=== PATIENT | male | born 1950 | race Caucasian/White ===

== ENCOUNTER 2024-03-02 18:34 | Emergency (ER) | payer MEDICARE, MEDICAID ==
[~2024-03-02] VITALS: Ht 170.2 cm; Wt 75.0 kg
[~2024-03-02 18:34] MED LIST: ASPI-1497 PO; ISOS30TA91 PO; LEVO500T2 MT; LEVO50TA8 PO; OMEP20CA14 MT
[2024-03-02 18:39] VITALS: BP 119/70; PULSE 63; RESP 18; TEMP 98.6; O2SAT 98
[2024-03-02] MEDS ORDERED: DICYCLOMINE 10 MG/5 ML ORAL SYR PO STA (19:55)
[2024-03-02] MEDS ORDERED: MAGNESIUM/ALUMINUM HYDROXIDE/SIMETHICONE 30ML UDC PO STA (19:55)
[2024-03-02] MEDS: MAGNESIUM/ALUMINUM HYDROXIDE/SIMETHICONE 30ML UDC PO NR (20:00)
[2024-03-02] MEDS: DICYCLOMINE HCL 10MG CAPSULE PO NR (20:00)
== END 2024-03-02 20:45 | disposition home or self-care (01) ==
LOC: ER 18:34
DX: R10.9 Unspecified abdominal pain (principal); I10 Essential (primary) hypertension; Z79.899 Other long term (current) drug therapy
CPT/HCPCS: 74018; 99283